=== PATIENT | male | born 1995 | race Caucasian/White ===

== ENCOUNTER 2018-04-23 22:04 | Emergency (ER) | payer SELFPAY ==
[~2018-04-23] VITALS: Ht 175.3 cm; Wt 81.8 kg
[2018-04-24 00:27] VITALS: BP 128/80
== END 2018-04-24 00:58 | disposition home or self-care (01) ==
LOC: EMS 22:06
DX: S60.441A External constriction of left index finger, initial encounter (principal); W49.04XA Ring or other jewelry causing external constriction, initial encounter; Y93.89 Activity, other specified; Y92.89 Other specified places as the place of occurrence of the external cause; Y99.8 Other external cause status
CPT/HCPCS: 99284

== ENCOUNTER 2019-06-06 11:24 | Emergency (ER) | payer SELFPAY ==
[~2019-06-06] VITALS: Ht 172.7 cm; Wt 68.2 kg
[2019-06-06 11:30] VITALS: BP 134/84
== END 2019-06-06 12:39 | disposition home or self-care (01) ==
LOC: EMS 11:26
DX: S60.441A External constriction of left index finger, initial encounter (principal); S60.443A External constriction of left middle finger, initial encounter; W49.04XA Ring or other jewelry causing external constriction, initial encounter; Y93.89 Activity, other specified; Y92.89 Other specified places as the place of occurrence of the external cause; Y99.8 Other external cause status